=== PATIENT | male | born 1990 | race Caucasian/White ===

== ENCOUNTER → 2021-04-15 13:35 | Outpatient (BNVA) | payer OTHER, SELFPAY | PROVIDERS: Visit Provider Physician Assistant Medical | DX: L24.5 Irritant contact dermatitis due to other chemical products (principal); L03.116 Cellulitis of left lower limb; L03.115 Cellulitis of right lower limb | CPT/HCPCS: 99202 ==

== ENCOUNTER → 2021-04-17 14:26 | Outpatient (BNVA) | payer OTHER, SELFPAY | PROVIDERS: Visit Provider Physician Assistant Medical | DX: L24.5 Irritant contact dermatitis due to other chemical products (principal); L03.116 Cellulitis of left lower limb; L03.115 Cellulitis of right lower limb | CPT/HCPCS: 36415; 80053; 99213 ==

== ENCOUNTER → 2021-04-20 13:06 | Outpatient (BNVA) | payer OTHER, SELFPAY | PROVIDERS: Visit Provider Physician Assistant | DX: L24.5 Irritant contact dermatitis due to other chemical products (principal); L03.114 Cellulitis of left upper limb; L03.115 Cellulitis of right lower limb | CPT/HCPCS: 99213 ==

== ENCOUNTER → 2022-03-31 09:38 | Outpatient (BNVA) | payer OTHER, SELFPAY | PROVIDERS: Visit Provider Physician Assistant | DX: S16.1XXA Strain of muscle, fascia and tendon at neck level, initial encounter (principal); X50.0XXA Overexertion from strenuous movement or load, initial encounter; R20.2 Paresthesia of skin; R51.9 Headache, unspecified | CPT/HCPCS: 99204 ==

== ENCOUNTER → 2022-04-08 13:01 | Outpatient (BNVA) | payer OTHER, SELFPAY | PROVIDERS: Visit Provider Physician Assistant | DX: S16.1XXD Strain of muscle, fascia and tendon at neck level, subsequent encounter (principal); X50.0XXD Overexertion from strenuous movement or load, subsequent encounter; R20.2 Paresthesia of skin | CPT/HCPCS: 99213 ==

== ENCOUNTER → 2022-04-15 13:07 | Outpatient (BNVA) | payer OTHER, SELFPAY | PROVIDERS: Visit Provider Physician Assistant | DX: S16.1XXD Strain of muscle, fascia and tendon at neck level, subsequent encounter (principal); X50.0XXD Overexertion from strenuous movement or load, subsequent encounter; R20.2 Paresthesia of skin; R51.9 Headache, unspecified | CPT/HCPCS: 99213 ==

== ENCOUNTER → 2022-04-19 12:10 | Outpatient (BNVA) | payer OTHER, SELFPAY | PROVIDERS: Visit Provider Physician Assistant Medical | DX: S16.1XXD Strain of muscle, fascia and tendon at neck level, subsequent encounter (principal); X50.0XXD Overexertion from strenuous movement or load, subsequent encounter; R20.2 Paresthesia of skin; R51.9 Headache, unspecified | CPT/HCPCS: 99213 ==

== ENCOUNTER → 2022-04-23 09:24 | Outpatient (BNVA) | payer OTHER, SELFPAY | PROVIDERS: Visit Provider Physician Assistant Medical | DX: S16.1XXD Strain of muscle, fascia and tendon at neck level, subsequent encounter (principal); X50.0XXD Overexertion from strenuous movement or load, subsequent encounter; R20.2 Paresthesia of skin; R51.9 Headache, unspecified | CPT/HCPCS: 99213 ==

== ENCOUNTER → 2022-04-28 09:52 | Outpatient (BNVA) | payer OTHER, SELFPAY | PROVIDERS: Visit Provider Physician Assistant | DX: S16.1XXD Strain of muscle, fascia and tendon at neck level, subsequent encounter (principal); X50.0XXD Overexertion from strenuous movement or load, subsequent encounter; M54.10 Radiculopathy, site unspecified; R51.9 Headache, unspecified | CPT/HCPCS: 99214 ==

== ENCOUNTER → 2022-05-06 09:32 | Outpatient (BNVA) | payer OTHER, SELFPAY | PROVIDERS: Visit Provider Physician Assistant | DX: S16.1XXD Strain of muscle, fascia and tendon at neck level, subsequent encounter (principal); X50.0XXD Overexertion from strenuous movement or load, subsequent encounter; M54.50 Low back pain, unspecified | CPT/HCPCS: 99214 ==

== ENCOUNTER → 2022-05-12 09:00 | Outpatient (BNVA) | payer OTHER, SELFPAY | PROVIDERS: Visit Provider Physician Assistant | DX: M54.50 Low back pain, unspecified (principal); M50.10 Cervical disc disorder with radiculopathy, unspecified cervical region | CPT/HCPCS: 72100; 99213 ==

== ENCOUNTER → 2022-05-26 10:25 | Outpatient (BNVA) | payer OTHER, SELFPAY | PROVIDERS: Visit Provider Physician Assistant | DX: M54.50 Low back pain, unspecified (principal); M50.10 Cervical disc disorder with radiculopathy, unspecified cervical region | CPT/HCPCS: 99213 ==

== ENCOUNTER → 2022-06-16 09:31 | Outpatient (BNVA) | payer OTHER, SELFPAY | PROVIDERS: Visit Provider Physician Assistant Medical | DX: M54.50 Low back pain, unspecified (principal); M50.90 Cervical disc disorder, unspecified, unspecified cervical region | CPT/HCPCS: 99214 ==